=== PATIENT | male | born 2000 | race Hispanic/Latino ===

== ENCOUNTER → 2025-09-26 16:53 | Outpatient (CLI) | payer OTHER, SELFPAY ==
--- NOTE | 2025-09-26 16:56 | DI.MRI.S_ITS ---
PROCEDURE: MR WRIST LT WO CON INDICATIONS: LT WRIST PAIN TECHNIQUE: Noncontrast coronal proton density fast spin echo and T2 fast spin echo with fat saturation; coronal 3-D gradient echo, axial T1 spin echo and T2 fast spin echo with fat saturation, sagittal T1 spin echo through the wrist. COMPARISON: None. FINDINGS: Image quality: Excellent. Bones and cartilage: The carpal bones are normally aligned. No bone marrow contusions or fractures. No evidence for avascular necrosis. Overlying cartilage surfaces appear normal. Carpal ligaments: The scapholunate ligament appears thickened with subtle intrasubstance T2 hyperintense signal. The lunotriquetral ligament appears intact.. In the absence of intra-articular contrast, the extrinsic carpal ligaments are not well identified. On sagittal images, the pisohamate ligament appears intact. Triangular fibrocartilage complex: There is signal abnormality involving triangular fibrocartilage near its ulnar insertion suggestive of subtle TFC tear in this area. The extensor carpi ulnaris tendon appears thickened with intrasubstance T2 hyperintense signal at the level of distal ulnar and ulnar styloid. Tendons and soft tissues: Mild edema involving adductor pollicis brevis muscle is seen at the level of 1st metacarpal base and 1st CMC joint. No other muscle signal abnormalities. The carpal tunnel structures appear normal, including the median nerve. The ulnar nerve appears normal within Guyon's canal. All six extensor tendon compartments demonstrate normal morphology, without pathologic tendon sheath fluid. No soft tissue ganglion cysts. IMPRESSION: 1. No marrow edema. No wrist fracture or dislocation. No evidence of avascular necrosis. 2. Suggestion of low-grade sprain/intrasubstance partial-thickness tear involving scapholunate ligament. No full-thickness ligament rupture. The lunotriquetral ligament is intact. 3. Suggestion of subtle TFC tear near its ulnar insertion. 4. Tendinosis and low-grade intrasubstance partial-thickness tear involving extensor carpi ulnaris tendon at the level of distal ulna and ulnar styloid. Rest of the extensor and flexor tendons are grossly intact. 5. Suggestion of low-grade strain involving adductor pollicis brevis muscle at the level of 1st CMC joint. Dictated by: Raymond Forde M.D. on 09/27/2025 at 9:43 Approved by: Raymond Forde M.D. on 09/27/2025 at 10:04
== END ==
PROVIDERS: Referring Provider Nurse Practitioner Family; Visit Provider Nurse Practitioner Family
DX: S66.812A Strain of other specified muscles, fascia and tendons at wrist and hand level, left hand, initial encounter (principal); M25.532 Pain in left wrist
CPT/HCPCS: 73221